=== PATIENT | male | born 1970 | race Caucasian/White ===

== ENCOUNTER → 2016-08-12 | Outpatient (CLI) | payer OTHER ==
[~2016-08-12] MED LIST: LISI40TA PO; METO50TA16 PO; RIVA1TAB PO
--- NOTE | 2016-08-12 09:40 | DIAGNOSTIC IMAGING REPORT ---
ABDOMEN AND PELVIS CT WITHOUT CONTRAST CT DOSE: 566.47 mGy.cm HISTORY: Left flank pain. N35.9 Urethral [id number] Recurrent UTI (urinary tract infec TECHNIQUE: Multiaxial CT images of the abdomen and pelvis were performed without contrast. COMPARISON STUDY: None. FINDINGS: The lung bases are clear. No fractures within the visualized osseous structures. The unenhanced liver, spleen, gallbladder, pancreas, and adrenal glands are unremarkable. No retroperitoneal lymphadenopathy. No renal stones or hydronephrosis. The ureters are normal and course and caliber. Unremarkable bladder. Suboptimal evaluation for bowel pathology due to the lack of intravenous and oral contrast. However, there is no definite bowel wall thickening or obstruction. Sigmoid diverticulosis. Normal appendix. A few surgical clips within the deep pelvis. IMPRESSION: 1. No renal stones or hydronephrosis. 2. No definite bowel wall thickening or obstruction. 3. Colonic diverticulosis. Electronically signed by: Mathew Conti M.D. 08/12/2016 9:39 AM Dictated Date/Time: 08/12/2016 9:33 AM
== END | disposition home or self-care (01) ==
LOC: C.CTS 09:08
PROVIDERS: ATTEND Urology
DX: N35.9 Urethral stricture, unspecified (principal); N39.0 Urinary tract infection, site not specified

== ENCOUNTER 2016-09-30 11:28 | Emergency (ER) | payer OTHER ==
[~2016-09-30] VITALS: Ht 180.3 cm; Wt 89.5 kg
[2016-09-30 11:38] VITALS: TEMP 36.8; Ht 180.3 cm; Wt 89.5 kg
[2016-09-30] MEDS ORDERED: LISI40TA PO (11:56)
[2016-09-30] MEDS ORDERED: METO50TA16 PO (11:56)
--- NOTE | 2016-09-30 12:16 | EMERGENCY ROOM VISIT NOTE ---
History First contact with patient: 11:42 Chief Complaint: LEG PAIN,LEG INJURY Stated Complaint: POSSIBLE BLOOD CLOT IN LEG, SENT FROM URGENT CARE History of Present Illness The patient is a 46 year old male who presents to the Emergency Room with complaints of left leg pain. The patient states that he has had left leg pain for approximately one week. He states that it started in the calf. He states it has slowly begun to extend more proximally. He reports redness, tenderness and can feel a hard area. The patient states that he walks a lot with work. The patient rates his discomfort an 8/10. He denies any fevers or chills. He denies any pain in his chest or trouble breathing. The patient denies any personal or family history of DVT, PE or coagulopathy. The patient uses chewing tobacco. He does not smoke. He denies any recent travel. He denies any recent surgery. He denies any personal history of cancer. Review of Systems A 10 system review of systems was completed with positives and pertinent negatives listed in the HPI. Past Medical/Surgical History Medical Problems: (1) Hypertension Social History Smoking Status: Never Smoker Housing Status: lives with family Occupation Status: employed Current/Historical Medications Scheduled Lisinopril (Zestril), 40 MG PO QAM Metoprolol Tartrate (Lopressor) (Lopressor), 50 MG PO BID Rivaroxaban (Xarelto), 10 MG PO DAILY Allergies Coded Allergies: No Known Allergies (Unverified , 09/30/16) Physical Exam Vital Signs Date Time Temp Pulse Resp B/P Pulse Ox O2 Delivery O2 Flow Rate FiO2 09/30/16 14:53 80 16 133/98 100 Room Air 09/30/16 13:13 73 16 122/81 95 09/30/16 11:38 36.8 77 18 126/82 99 Room Air Physical Exam VITALS: Vitals are noted on the nurse's note and reviewed by myself. Vital signs stable. GENERAL: This is a 46-year-old male, in no acute distress, nondiaphoretic, well- developed well-nourished. SKIN: There is tenderness, erythema and warmth to the left calf. There is a palpable cord. There is no tenting of the skin. Capillary reflex less than 2 seconds. HEAD: Normocephalic atraumatic. EARS: External ears are normal in appearance. EYES: Pupils equal round and reactive to light and accommodation. Conjunctivae without injection, sclerae without icterus. Extraocular movements intact. NOSE: Patent, turbinates without inflammation or discharge. MOUTH: Mucous membranes moist. Tonsils are not enlarged. Pharynx without erythema or exudate. Uvula midline. Airway patent. Tongue does not deviate. NECK: Supple without nuchal rigidity. No JVD. HEART: Regular rate and rhythm without murmurs gallops or rubs. LUNGS: Clear to auscultation bilaterally without wheezes, rales or rhonchi. No retractions or accessory muscle use. MUSCULOSKELETAL: No muscle atrophy, Full range of motion without joint tenderness in all extremities. There is erythema, tenderness and warmth as well as a palpable cord to the left lower extremity that extends from the calf to the mid thigh on the medial aspect. Normal gait. Strength 5/5 throughout. NEURO: Patient was alert and oriented to person place and time. No focal neurological deficits. Medical Decision & Procedures ER Provider Diagnostic Interpretation: LEFT LOWER EXTREMITY VENOUS DOPPLER CLINICAL HISTORY: Left leg pain and swelling. COMPARISON STUDY: No previous studies for comparison. TECHNIQUE: Sonography of the deep venous system of the left lower extremity was performed. Compression and augmentation were evaluated. FINDINGS: The left common femoral, superficial femoral and popliteal veins were compressible. Augmentation was normal. Flow was shown within the deep calf vessels. Note was made of thrombus within a superficial vein that extends from the distal left thigh to the mid to distal left calf. The thrombus extends for approximately 12 cm. IMPRESSION: 1. No evidence of deep venous thrombus within the left lower extremity. 2. Moderate superficial thrombus within the left lower extremity, as described above. This thrombus extends for approximately 12 cm in length. Laboratory Results 09/30/16 12:15 Red Blood Count 5.01, Mean Corpuscular Volume 93.2, Mean Corpuscular Hemoglobin 33.5, Mean Corpuscular Hemoglobin Concent 36.0, Mean Platelet Volume 10.5, Neutrophils (%) (Auto) 69.7, Lymphocytes (%) (Auto) 20.9, Monocytes (%) (Auto) 7.6, Eosinophils (%) (Auto) 1.1, Basophils (%) (Auto) 0.4, Neutrophils # (Auto) 4.97, Lymphocytes # (Auto) 1.49, Monocytes # (Auto) 0.54, Eosinophils # (Auto) 0.08, Basophils # (Auto) 0.03 09/30/16 12:15 Test 09/30/16 12:15 White Blood Count 7.13 K/uL (4.8-10.8) Red Blood Count 5.01 M/uL (4.7-6.1) Hemoglobin 16.8 g/dL (14.0-18.0) Hematocrit 46.7 % (42-52) Mean Corpuscular Volume 93.2 fL (80-100) Mean Corpuscular Hemoglobin 33.5 pg (25-34) Mean Corpuscular Hemoglobin Concent 36.0 g/dl (32-36) Platelet Count 147 K/uL (130-400) Mean Platelet Volume 10.5 fL (7.4-10.4) Neutrophils (%) (Auto) 69.7 % Lymphocytes (%) (Auto) 20.9 % Monocytes (%) (Auto) 7.6 % Eosinophils (%) (Auto) 1.1 % Basophils (%) (Auto) 0.4 % Neutrophils # (Auto) 4.97 K/uL (1.4-6.5) Lymphocytes # (Auto) 1.49 K/uL (1.2-3.4) Monocytes # (Auto) 0.54 K/uL (0.11-0.59) Eosinophils # (Auto) 0.08 K/uL (0-0.5) Basophils # (Auto) 0.03 K/uL (0-0.2) RDW Standard Deviation 40.4 fL (36.4-46.3) RDW Coefficient of Variation 12.0 % (11.5-14.5) Immature Granulocyte % (Auto) 0.3 % Immature Granulocyte # (Auto) 0.02 K/uL (0.00-0.02) Prothrombin Time 11.4 SECONDS (9.0-12.0) Prothromb Time International Ratio 1.1 (0.9-1.1) Activated Partial Thromboplast Time 25.0 SECONDS (21.0-31.0) Partial Thromboplastin Ratio 1.0 Anion Gap 8.0 mmol/L (3-11) Est Creatinine Clear Calc Drug Dose 109.1 ml/min Estimated GFR () 117.5 Estimated GFR (Non- 101.4 BUN/Creatinine Ratio 10.3 (10-20) Calcium Level 9.3 mg/dl (8.5-10.1) Total Bilirubin 1.1 mg/dl (0.2-1) Aspartate Amino Transf (AST/SGOT) 22 U/L (15-37) Alanine Aminotransferase (ALT/SGPT) 36 U/L (12-78) Alkaline Phosphatase 69 U/L (45-117) Total Protein 7.7 gm/dl (6.4-8.2) Albumin 4.5 gm/dl (3.4-5.0) Globulin 3.2 gm/dl (2.5-4.0) Albumin/Globulin Ratio 1.4 (0.9-2) ED Course The patient was seen and examined. Previous visits were reviewed. The patient does not have a fever or leukocytosis. He is not anemic. He does not have any significant electrolyte abnormality. INR was 1.1. Ultrasound was obtained as above. The patient has a fairly large 12 cm superficial thrombophlebitis. He has not had any chest pain or trouble breathing. He does not appear to have DVT at this time. However given that it is longer than 5 cm, he will likely require anticoagulation. I discussed the case with Dr. Ren. She suggests either Xarelto 10 mg daily for 6 weeks, Lovenox 40 mg daily for Lovenox/Coumadin. Initially, the patient went to try to Lovenox and Coumadin as he contacted his insurance company and the Xarelto would cost at least $100-$200. Then, he spoke with his mother. She stated she would cover the cost of the Xarelto. I discussed the risks, benefits and alternatives of anticoagulation and the different types. The patient now elects to go with the Xarelto. He was given a prescription for 10 mg daily and was given a 90 day prescription. He stated that he contacted his insurance company and they would only cover one prescription and it needs to be either 30 days or 90 days. He requested to have a prescription for 90 days. I did advise him that he should only take it for 6 weeks. He acknowledges understanding. He should return to the ER immediately with any chest pain, trouble breathing or generalized worsening symptoms. Otherwise, he should follow-up with his family doctor next week for a recheck. The case was discussed with who agrees with the assessment and treatment plan. Medical Decision The differential diagnosis includes superficial thrombophlebitis, DVT, PE, cellulitis, strain, sprain, among others Impression Primary Impression: Superficial thrombophlebitis Departure Information Dispostion Home / Self-Care Condition GOOD Prescriptions Rivaroxaban (XARELTO) 10 Mg Tab 10 MG PO DAILY for 90 Days, #90 TAB Prov: Shavon Mclean PA-C 09/30/16 Referrals Marcos Henry M.D. (PCP) Patient Instructions ED Phlebitis Superficial, [facility] Additional Instructions Xarelto 10mg daily for 6 weeks Follow up with your family doctor next week Return with worsening symptoms, shortness of breath or generalized worsening symptoms Problem Qualifiers Primary Impression: Superficial thrombophlebitis Superficial thrombophlebitis-Involved body area: lower extremity Laterality: left Qualified Codes: I80.02 - Phlebitis and thrombophlebitis of superficial vessels of left lower extremity
[2016-09-30 12:29] LABS: BASO % 0.4 %; BASO ABS # 0.03 K/uL (0-0.2); COMPLETE YES; EOS % 1.1 %; HEMATOCRIT 46.7 % (42-52); IG% 0.3 %; LYMPH % 20.9 %; LYMPH ABS # 1.49 K/uL (1.2-3.4); MEAN CELL VOLUME 93.2 fL (80-100); MEAN CORPUSCULAR HEMOGLOBIN 33.5 pg (25-34); MEAN PLATELET VOLUME 10.5 fL (7.4-10.4); MONO % 7.6 %; NEUT % 69.7 %; PLATELET COUNT 147 K/uL (130-400); RED BLOOD COUNT 5.01 M/uL (4.7-6.1); WHITE BLOOD COUNT 7.13 K/uL (4.8-10.8)
[2016-09-30 12:43] LABS: INR 1.1 (0.9-1.1); PROTHROMBIN TIME (PATIENT) 11.4 SECONDS (9.0-12.0)
[2016-09-30 12:44] LABS: BUN/CREATININE RATIO 10.3 (10-20); CALCIUM 9.3 mg/dl (8.5-10.1); CREATININE 0.91 mg/dl (0.60-1.40); POTASSIUM 4.1 mmol/L (3.5-5.1)
[2016-09-30 12:46] LABS: ALB/GLOB RATIO 1.4 (0.9-2)
--- NOTE | 2016-09-30 13:27 | DIAGNOSTIC IMAGING REPORT ---
LEFT LOWER EXTREMITY VENOUS DOPPLER CLINICAL HISTORY: Left leg pain and swelling. COMPARISON STUDY: No previous studies for comparison. TECHNIQUE: Sonography of the deep venous system of the left lower extremity was performed. Compression and augmentation were evaluated. FINDINGS: The left common femoral, superficial femoral and popliteal veins were compressible. Augmentation was normal. Flow was shown within the deep calf vessels. Note was made of thrombus within a superficial vein that extends from the distal left thigh to the mid to distal left calf. The thrombus extends for approximately 12 cm. IMPRESSION: 1. No evidence of deep venous thrombus within the left lower extremity. 2. Moderate superficial thrombus within the left lower extremity, as described above. This thrombus extends for approximately 12 cm in length. Electronically signed by: Clovis Luis M.D. 09/30/2016 1:24 PM Dictated Date/Time: 09/30/2016 1:20 PM
[2016-09-30] MEDS ORDERED: RIVA1TAB PO (14:37)
[2016-09-30 14:53] VITALS: BP 133/98; PULSE 80; O2SAT 100
== END 2016-09-30 14:54 | disposition home or self-care (01) ==
LOC: C.EDB 11:29 → C.EDD 14:54
DX: I80.02 Phlebitis and thrombophlebitis of superficial vessels of left lower extremity (principal); F17.220 Nicotine dependence, chewing tobacco, uncomplicated; I10 Essential (primary) hypertension